=== PATIENT | male | born 1965 | race Caucasian/White ===

== ENCOUNTER → 2022-01-31 07:44 | Outpatient (CLI) | payer OTHER, SELFPAY ==
--- NOTE | ~2022-01-31 | US_ITS ---
US abdomen limited INDICATION: Right upper quadrant pain PROCEDURE: Realtime right upper abdominal ultrasound. COMPARISON: No prior studies for comparison. FINDINGS: Pancreas is not well visualized due to bowel gas. Liver echotexture is normal without foca l mass or intrahepatic biliary dilatation. There is normal directional flow in the portal vein. Gallbladder is distended with stones and sludge. There is gallbladder wall thickening. No pericholecy stic fluid. Common bile duct measures 3 mm. No sonographic Christianson's sign. IMPRESSION: 1: Gallbladder distention with stones and sludge with gallbladder wall thickening. Findings suspiciou s for cholecystitis. Consider correlation with nuclear hepatobiliary scan. Reviewed, dictated and finalized at location A. IMPRESSION: 1: Gallbladder distention with stones and sludge with gallbladder wall thickeni ng. Findings suspicious for cholecystitis. Consider correlation with nuclear he patobiliary scan.
== END ==
PROVIDERS: PCP Nurse Practitioner; Visit Provider Nurse Practitioner
DX: R10.13 Epigastric pain (principal); R10.11 Right upper quadrant pain; K80.20 Calculus of gallbladder without cholecystitis without obstruction; K83.9 Disease of biliary tract, unspecified
CPT/HCPCS: 76705

== ENCOUNTER 2022-03-07 13:14 | Outpatient (CLI) | payer OTHER, SELFPAY ==
--- NOTE | ~2022-03-07 | NM_ITS ---
EXAMINATION: NM hepatobiliary wo pharm DATE: 03/07/2022 16:13 CDT INDICATION: Gallstones. Abdomen pain. COMPARISON: None. TECHNIQUE: 1 mCi Tc-99m mebrofenin (Choletec) was administered intravenously. Scintigraphic images o f the abdomen were obtained for one hour. At the 1 hour time point, the patient drank 8 oz Ensure, an d imaging was continued for 60 minutes. Gallbladder ejection fraction was calculated by the technolog ist. FINDINGS: There is normal clearance of radiotracer from the blood pool. There is homogeneous tracer u ptake by the liver. Activity progresses to the bowel and gallbladder. The gallbladder ejection fract ion is 95%. Note that with this technique, normal GBEF >= 33%. IMPRESSION: 1. Normal hepatobiliary scan. Reviewed, dictated and finalized at location A.
== END 2022-03-07 13:15 | disposition home or self-care (01) ==
PROVIDERS: PCP Internal Medicine; Visit Provider Nurse Practitioner
DX: K80.00 Calculus of gallbladder with acute cholecystitis without obstruction (principal)
CPT/HCPCS: 78226; A9537

== ENCOUNTER 2022-03-31 10:53 | Outpatient (CLI) | payer OTHER, SELFPAY ==
--- NOTE | 2022-03-31 11:02 | ECG_ITS ---
Measurements Intervals [place] Rate: 53 P: 39 MD: 152 QRS: -62 QRSD: 134 T: -9 QT: 422 QTc: 398 Interpretive Statements SINUS BRADYCARDIA RIGHT BUNDLE BRANCH BLOCK [120+ ms QRS DURATION, UPRIGHT V1, 40+ ms S IN I/aVL/V4/V5/V6] LEFT ANTERIOR FASCICULAR BLOCK [QRS AXIS <= -45, QR IN I, RS IN II] MINIMAL VOLTAGE CRITERIA FOR LVH, CONSIDER NORMAL VARIANT [MEETS CRITERIA IN ONE OF: R(aVL), S(V1), R(V5), R(V5/V6)+S(V1)] ABNORMAL ECG NO PREVIOUS ECG AVAILABLE FOR COMPARISON Electronically Signed On 03-31-2022 17:22:02 CDT by Fransico Alfaro M.D.
[2022-03-31 11:37] LABS: Alanine Aminotransferase 14 U/L (6-50); Albumin Level 4.6 g/dL (3.5-5.1); Alkaline Phosphatase 71 U/L (38-126); Amylase 75 U/L (30-110); Aspartate Amino Transferase 17 U/L (17-59); Bilirubin,Total 0.4 mg/dL (0.2-1.3); Lipase 49 U/L (23-300)
== END 2022-03-31 10:54 | disposition home or self-care (01) ==
PROVIDERS: PCP Internal Medicine; Visit Provider Surgery
DX: K80.00 Calculus of gallbladder with acute cholecystitis without obstruction (principal); E78.5 Hyperlipidemia, unspecified; Z01.818 Encounter for other preprocedural examination; I45.10 Unspecified right bundle-branch block; I44.4 Left anterior fascicular block
CPT/HCPCS: 36415; 80076; 82150; 83690; 86850; 86900; 86901; 93005

== ENCOUNTER 2022-04-05 00:41 | Day surgery (SDC) | payer OTHER, SELFPAY ==
[2022-03-27 17:54] VITALS: BMI 25.0
--- NOTE | 2022-03-27 18:10 | PC.NURSE ---
Report to the Outpatient Waiting Room, entrance under the green pavilion located off [facility], at time _1130 on date 04/05/22. OR Time: 1330_. - You and your visitor will be asked to self-screen and do not enter if you have any COVID symptoms. - Only one visitor and NO children visitors are allowed at this time. - The patient visitor is requested to leave or wait in car when not with patient due to restrictions. - A mask is required within the hospital. Patients may have clear liquids (water, carbonated beverages, clear teas, apple juice) until 3 hours prior to surgery with a maximum of 20 ounces. - No food from midnight until time of surgery - Infants may have breast milk until 4 hours before surgery, formula 6 hours prior to surgery. - Children will be allowed to drink immediately following surgery. If applicable, please bring a bottle or sippy cup to assist with drinking. Juice, water, soda, and popsicles are readily available. For infants on formula, please bring formula the day of surgery. Pacifiers are allowed. Take the following medications with a SIP of water the morning of surgery: _n/a Medications to discontinue per physician _n/a__ Date to take last dose Please no make-up, nail malaysian, hairspray, perfume, deodorant, or body powder the day of surgery. No jewelry (including any body piercings) or valuables the day of surgery, leave them at home. Please take a shower or bath the night before, or the morning of, surgery with an antibacterial soap. Wear comfortable, loose fitting clothing. Children are encouraged to wear pajamas. - Jewelry must be removed prior to entering the operating room. Rings and piercings that are not removed may be cut off. - The hospital will not accept responsibility for valuables. - Please leave all valuables, including medications, at home the day of surgery. If you are going home after surgery, a licensed driver examiner must drive you home. - NO public transportation without another adult. - We recommend that an adult stay with you for 24 hours following discharge. - We also recommend that you do not drive, make important decision, drink alcoholic beverages, or take any drugs that were not prescribed by your health care provider for at least 24 hours after your discharge time. For Pediatric surgeries, we recommend two adults accompany the child home (only one inside the building at this time). Follow any additional instructions given to you from your surgeon. If you or anyone in your household have experienced Covid symptoms in the past week, please notify your surgeon or the nurse liaison at the phone number below for possible testing. Telephone instructions given to Abdiel Curryand asked if any additional questions and then verbalized understanding. Patient advised to call surgeon office or pre surgery nurse liaison [phone] if any additional questions.
--- NOTE | 2022-04-04 13:19 | P.PNAN_ITS ---
Anes - Initial Pre Proc Eval Procedure: Operation Date: 04/05/22 09:00 Proposed Procedures p Laparoscopic Cholecystectomy - Julianna Ritter MD Date/Time: 04/04/22 13:19 Surgeon: Julianna Ritter MD Pre Op Diagnosis: chronic cholecystitis with calculus Patient Data Age: 57 Gender: M Height: 1.91 m Weight: 91 kg Allergies Allergy/AdvReac Type Severity Reaction Status Date / Time No Known Allergies Allergy Verified 04/05/22 07:32 Home Medications Medication Instructions Recorded Confirmed Type Saccharomyces boulardii 250 mg 5,000 mmu cells PO DAILY 01/24/22 04/05/22 History capsule (Daily Probiotic (S. boulardii)) atorvastatin 80 mg tablet 80 mg PO DAILY 01/24/22 04/05/22 History diclofenac sodium 1 % topical gel 2 g topical QID 01/24/22 04/05/22 History (Voltaren Arthritis Pain) duloxetine 30 mg capsule,delayed 30 mg PO DAILY 01/24/22 04/05/22 History release Patient hx anesthesia problems: none Family hx anesthesia problems: none Results Review: All pre-operative results and documents have been reviewed as part of the pre- operative evaluation. [facility] Past Medical History Medical History Anxiety Arthritis Depression Hyperlipidemia Surgical History Surgical History H/O arthroscopy of left knee 1991 Family History Family History Father Cerebrovascular accident Mother No problems noted. 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 [employer] Spiritual care concerns: No Agree to blood products: Yes Anes - Eval Final PreProcedure Day of Procedure 04/04/22 13:19 Patient weight: overweight Heart: regular rate and rhythm Lungs: clear to auscultation and normal air movement Airway: Mallampati scale class II Neurological: alert and oriented Last oral intake: >/= 8 hours ASA classification: II Emergent: no Anesthetic plan: proceed Anesthesia type and monitoring: general ETT Results Review: All pre-operative results and documents have been reviewed as part of the pre- operative evaluation. Informed Consent: The patient's anesthetic plan and its attendant risks and benefits were discussed with the patient/family/POA. Questions were solicited and answers provided to the satisfaction of the patient/family/POA.
[2022-04-05] VITALS (8 sets, daily range): BP systolic 126–159; BP diastolic 63–90; PULSE 52–82; RESP 12–16; TEMP 36.2; O2SAT 99–100
[2022-04-05] MEDS: ACETAMINOPHEN 500 MG TABLET 1000 MG PO (07:31)
[2022-04-05] MEDS: KETOROLAC 15 MG/ML VIAL (*BKC) IV PUSH (07:49)
[2022-04-05] MEDS: LACTATED RINGERS 1,000 ML 30 ML IV CONT ×2 (07:49→10:12)
--- NOTE | 2022-04-05 08:57 | WPDHPUPDATE1 ---
History and Physical Update Update Date/Time: 04/05/22 08:57 History and Physical has been reviewed, including an updated exam of the patient. There are NO changes in the patient's condition. Risks, benefits, and alternatives have been discussed and questions answered. Patient agrees to proceed with procedure.
[2022-04-05] MEDS: ceFAZolin 2 GM/D5W 50 ML 2 GM/50 ML BAG IVPB (08:59)
--- NOTE | 2022-04-05 10:04 | W.PM.PROC2 ---
Procedure Note - Detailed Date of Procedure 04/05/22 Pre-op Diagnosis chronic cholecystitis with calculus Post-op Diagnosis Same Procedure Performed Laparoscopic cholecystectomy Surgeon Julianna Ritter MD Anesthesia General Indications 57-year-old male presented to the office complaining of postprandial right upper quadrant abdominal pain associated with nausea and vomiting. Workup including imaging significant for cholecystitis, cholelithiasis. Findings Cholecystitis with cholelithiasis Description of Procedure The patient was taken to the operating room placed in the supine position. After adequate induction of general anesthesia, the patient was prepped and draped in normal sterile fashion. A time-out was then performed to verify the patient's identity as well as the procedure being performed. I then made a 5 mm incision in the infraumbilical region. Through this, a Veress needle was placed into the peritoneal cavity and CO2 gas was then insufflated. After adequate pneumoperitoneum was achieved, the Veress needle was removed and a 5 mm optiview trocar was placed through this incision under direct visualization. I then placed the laparoscope through this trocar site and under direct visualization placed a further 12 mm subxiphoid port as well as 2 additional 5 mm ports in the right upper abdomen. The gallbladder was then identified and was noted to be inflamed and distended. There was some omental adhesions to the gallbladder and this was taken down with the bovie cautery. I was able to place a grasper at the dome of the gallbladder and this was retracted anterior and cephalad up over the liver. A 2nd retractor was then placed at the infundibulum and retracted laterally, this allowed visualization of the triangle of Calot. I then was able to visualize the cystic duct in its entirety from its proximal insertion into the gallbladder, to its distal junction with the common hepatic/common bile duct junction. At this point, I carefully skeletonized the proximal cystic duct with the [place] dissector. I then clipped and transected the proximal cystic duct. Next I visualized the cystic artery. Again the artery was skeletonized, clipped, and transected. I then used the Bovie cautery to take down the peritoneal attachments of the gallbladder off the liver bed. This was somewhat difficult given the amount of inflammation in the posterior space. Once the gallbladder specimen was completely detached, an endo-pouch was placed through the 12 mm port site. I then placed the gallbladder specimen into the Endo pouch and removed the endo-pouch from the 12 mm port site. The specimen will now be sent to pathology for further review. I then copiously irrigated the right upper quadrant. Some mild oozing was noted in the liver bed and this was controlled with the bovie cautery. Hemostasis was noted in the liver bed, the clips were noted to be in good position on both the cystic duct stump and the cystic artery stump. No other pathology was noted in the right upper quadrant. I then moved the laparoscope to the subxiphoid port. No iatrogenic injury or other pathology was noted in the lower abdomen. I then closed the 12 mm trocar site under direct visualization using the Yohan cone and 0 Vicryl suture. At this point, the abdomen was desufflated and all ports removed. All port sites were then closed with 4.O Monocryl subcuticular sutures. Dermabond was placed on each incision. The patient tolerated the procedure well, was extubated in the operating room postoperative and will be transferred to the recovery room in stable condition Estimated Blood Loss 10 Drains No Packing No Pathology Yes Complications No immediate complications Condition Stable Disposition PACU [facility] Billing Surgery - Charge Forward: Surgery Billing
== END 2022-04-05 11:55 | disposition home or self-care (01) ==
PROVIDERS: PCP Internal Medicine; Visit Provider Surgery
PROC: 0FT44ZZ Resection of Gallbladder, Percutaneous Endoscopic Approach (ICD-10-PCS; CPT 47562; principal; 2022-04-05 09:00)
DX: K80.10 Calculus of gallbladder with chronic cholecystitis without obstruction (principal); D13.5 Benign neoplasm of extrahepatic bile ducts; E78.5 Hyperlipidemia, unspecified; F41.9 Anxiety disorder, unspecified; F32.A Depression, unspecified; F17.210 Nicotine dependence, cigarettes, uncomplicated
CPT/HCPCS: 47562; 36415; 80076; 82150; 83690; 86850; 86900; 86901; 88304; 93005; A9270; J0690; J1100; J1170; J1885; J2250; J2370; J2405; J2704; J2710; J3010; J7030; J7120

== ENCOUNTER → 2023-06-04 11:03 | Outpatient (CLI) | payer OTHER, SELFPAY ==
--- NOTE | ~2023-06-04 | XR_ITS ---
XR knee LT 3V DATE: 06/04/2023 11:15 INDICATION: Left knee pain. No recent injury. TECHNIQUE: [place], AP and lateral views COMPARISON: None FINDINGS: There is periarticular spurring at all 3 compartments, particularly severe at the patellofe moral compartment. Mild loss of medial compartment joint space height. No fracture or dislocation or joint effusion, radiopaque intra-articular loose body or chondrocalcino sis is detected. No periosteal reaction or bone destruction. IMPRESSION: Tricompartment osteoarthritis, particularly severe at the patellofemoral compartment Reviewed, dictated and finalized at location L. IMPRESSION: Tricompartment osteoarthritis, particularly severe at the patellofe moral compartment
== END ==
PROVIDERS: PCP Internal Medicine; Visit Provider Nurse Practitioner
DX: M25.562 Pain in left knee (principal); M17.12 Unilateral primary osteoarthritis, left knee
CPT/HCPCS: 73562

== ENCOUNTER 2023-06-07 07:54 | Outpatient (CLI) | payer OTHER, SELFPAY ==
[2023-06-07 08:40] LABS: Basophils Percent Auto 0.3 % (0.2-1.2); Eosinophils Absolute Auto 0.1 K/mm3 (0-0.3); Eosinophils Percent Auto 0.9 % (0-4.4); Hemoglobin 13.4 g/dL (14.0-18.0); Immature Granulocyte Absolute 0.02 K/mm3 (0.00-0.031); Immature Granulocyte Percent A 0.3 % (0-0.5); Lymphocytes Absolute Auto 2.55 K/mm3 (0.9-3.2); Lymphocytes Percent Auto 39.8 % (18.3-44.2); Mean Corpuscular HGB Conc 32.7 g/dl (32-36); Mean Corpuscular Volume 94.9 fl (80-100); Monocytes Absolute Auto 0.5 K/mm3 (0.1-0.6); Neutrophils Absolute Auto 3.3 K/mm3 (1.3-6.7); Neutrophils Percent Auto 51.7 % (45.5-73.1); Platelet Count Result 254 k/mm3 (150-375); Red Blood Count 4.32 M/mm3 (4.6-6.20); Red Cell Distribution Width 13.1 % (11.5-14.5); White Blood Count 6.4 K/mm3 (4.5-10.0)
[2023-06-07 08:55] LABS: Alanine Aminotransferase 23 U/L (6-50); Albumin Level 4.3 g/dL (3.5-5.1); Alkaline Phosphatase 74 U/L (38-126); Anion Gap 7 mmol/L (8-16); Aspartate Amino Transferase 21 U/L (17-59); Bilirubin,Total 0.6 mg/dL (0.2-1.3); Blood Urea Nitrogen 15 mg/dL (9-20); Calcium 9.5 mg/dL (8.4-10.2); Carbon Dioxide 27 mmol/L (22-30); Chloride 104 mmol/L (98-107); Cholesterol 204 mg/dL (0-200); Estimated Glomerular Filt Rate > 60; Glucose 111 mg/dL (65-110); HDL Direct 43 mg/dL; Potassium 4.2 mmol/L (3.4-5.0); Sodium 138 mmol/L (137-145); Triglycerides 141 mg/dL (<150)
[2023-06-07 09:06] LABS: LDL Cholesterol Direct 124 mg/dL
[2023-06-07 11:23] LABS: Prostate Specific Antigen 1.8 ng/mL (< OR = 4.0)
[2023-06-07 14:06] LABS: Hemoglobin A1C 5.6 % (<5.7)
== END 2023-06-07 07:55 | disposition home or self-care (01) ==
LOC: ANHLAB 07:55
PROVIDERS: PCP Internal Medicine; Visit Provider Nurse Practitioner
DX: Z12.5 Encounter for screening for malignant neoplasm of prostate (principal); E78.5 Hyperlipidemia, unspecified; R73.9 Hyperglycemia, unspecified; Z13.29 Encounter for screening for other suspected endocrine disorder
CPT/HCPCS: 36415; 80053; 80061; 83036; 84153; 85025; G0103

== ENCOUNTER 2023-12-24 09:34 | Outpatient (CLI) | payer OTHER, SELFPAY ==
[2023-12-24 09:50] LABS: Basophils Percent Auto 0.2 % (0.2-1.2); Eosinophils Absolute Auto 0.1 K/mm3 (0-0.3); Eosinophils Percent Auto 2.2 % (0-4.4); Hematocrit 42.7 % (42.0-52.0); Immature Granulocyte Absolute 0.02 K/mm3 (0.00-0.031); Immature Granulocyte Percent A 0.3 % (0-0.5); Immature Reticulocyte Fraction 11.8 % (3.0-15.9); Lymphocytes Absolute Auto 2.12 K/mm3 (0.9-3.2); Lymphocytes Percent Auto 36.3 % (18.3-44.2); Mean Corpuscular HGB Conc 32.8 g/dl (32-36); Mean Corpuscular Hemoglobin 31.5 pg (26-34); Mean Platelet Volume 10.8 fl (7.4-10.4); Monocytes Absolute Auto 0.4 K/mm3 (0.1-0.6); Monocytes Percent Auto 6.7 % (2.6-8.5); Neutrophils Absolute Auto 3.2 K/mm3 (1.3-6.7); Neutrophils Percent Auto 54.3 % (45.5-73.1); Platelet Count Result 236 k/mm3 (150-375); Red Blood Count 4.45 M/mm3 (4.6-6.20); Red Cell Distribution Width 12.9 % (11.5-14.5); Reticulocyte Hemoglobin Conten 33.7 pg (28.2-36.6); Reticulocyte Percent 1.43 % (0.7-4.3); Reticulocytes Absolute 0.06 10^6/uL (0.02-0.10); White Blood Count 5.8 K/mm3 (4.5-10.0)
[2023-12-24 10:06] LABS: Iron 69 ug/dL (49-181)
[2023-12-24 10:16] LABS: Percent Iron Saturation 21 % (20-50)
[2023-12-24 10:42] LABS: Erythrocyte Sedimentation Rate 19 mm/hr (0-20)
[2023-12-24 11:13] LABS: Folic Acid 13.2 ng/mL (2.76->20)
[2023-12-31 14:39] LABS: Apolipoprotein B 93 mg/dL
== END 2023-12-24 09:35 | disposition home or self-care (01) ==
LOC: ANHLAB 09:36
PROVIDERS: PCP Internal Medicine; Visit Provider Nurse Practitioner
DX: D64.9 Anemia, unspecified (principal); E78.5 Hyperlipidemia, unspecified
CPT/HCPCS: 36415; 82172; 82607; 82728; 82746; 83540; 83550; 85025; 85046; 85652

== ENCOUNTER 2025-06-11 08:57 | Outpatient (CLI) | payer BC, SELFPAY ==
--- NOTE | 2025-06-11 09:30 | ECG_ITS ---
Test Date: 2025-06-11 09:45:22 Measurements Intervals [place] Rate: 68 P: 42 CT: 163 QRS: -60 QRSD: 133 T: 0 QT: 420 QTc: 447 Interpretive Statements SINUS RHYTHM RIGHT BUNDLE BRANCH BLOCK LEFT ANTERIOR FASCICULAR BLOCK Electronically Signed On 06-11-2025 10:07:43 DE ICER FINISHER by Remington Ramirez D.O
--- OUTSIDE RECORDS SUMMARY | 2025-06-11 09:32 | XMS_ITS | Clinical Summary ---
Author Organization [facility] [employer] Address [address] [place] [address] Care Team Providers Care Eclectic Doctor Name Role Phone Edgar Fuller DO Primary Care Provider [phone] Source Comments [facility] [employer],non-owned Affiliates and Associated Physician Practices is amultiple site organization consisting of ambulatory clinics and hospital sitesin [place], [place], [place] and [place]. This disclosure is being madepursuant to the Care Everywhere program and may not contain all information available regarding this patient. Last updated 18.[facility] [employer] Allergies No known active allergies Medications * This document contains information received from the source organization and may not represent a complete record from that organization. * Be aware that medications may not be up to date on this document. Alwaysverify current medications with the patient. diclofenac sodium (VOLTAREN) 1 % gel Apply to affected area 4 times daily Active atorvastatin (LIPITOR) 80 MG tabletIndicatio ns:Dyslipidemia TAKE 1 TABLET BY MOUTH AT BEDTIME 90 tablet 3 11/27/2021 Active DULoxetine (Cymbalta) 30 MG capsuleIndicati ons:Recurrent major depressive disorder, in full remission TAKE 1 CAPSULE BY MOUTH EVERY DAY 90 capsule 3 01/28/2023 Active Active Problems Problem Noted Date Diagnosed Date Early satiety 10/04/2021 Assessment & Plan (10/04/2021 4:12 PM PRISON GUARD): Worsening over time. Unable to eat what he could normally eat in the past without having significant abdominal pain and discomfort. Sending for EGD to rule out insidious cause. If normal, will advise to try antacids and/or reduce portion sizes to accommodate. Chronic pain of left knee 11/23/2020 Assessment & Plan (11/23/2020 4:49 PM CDT): Possible osteoarthritis versus long-term sequela of past surgery. Sending for x- ray and refer him to sports medicine. Generalized abdominal pain 11/23/2020 Assessment & Plan (11/23/2020 4:49 PM CDT): Unclear etiology. Possible food intolerance. Could also have a gastric ulcer. Checking H. pylori and labs. If all normal, suggest patient monitor for possible food triggers and take [id number] treatments as needed. Recurrent major depressive disorder 09/17/2018 Assessment & Plan (11/23/2020 4:49 PM CDT): Doing well on Cymbalta. Continue current dose. Assessment & Plan (04/28/2019 4:38 PM CDT): Doing very well at present. No changes to treatment indicated. Return in about 1 year (around 04/28/2020) for f/u depression. Dyslipidemia 09/17/2018 Sensorineural hearing loss (SNHL) of both ears 1 09/16/2016 Tinnitus of left ear 07/16/2017 Anxiety 12/02/2015 Immunizations Immunization Administration Dates Next Due FLU VACCINE TRI IIV3 SPLIT PF IM (FLUVIRIN) 11/2016 INFLUENZA VACCINE 05/19/2021 Influenza Intradermal 04/12/2016 TDAP (7yrs+) 04/12/2016 Zoster Hzv Vacc Recombinant Inj Im 04/28/2019 Social History Tobacco Use Types Packs/Day Years Used Date Smoking Tobacco: Every Day Cigarettes Smokeless Tobacco: Never Alcohol Use Standard Drinks/Week Comments Yes 0 (1 standard drink = 0.6 oz pur e alcohol) socially AUDIT-C Answer Date Recorded Q1: How often do you have a drink containing alc ohol? 2-4 times a month 11/23/2020 Q2: How many drinks containi ng alcohol do you have on a typical day when you are drinking? 3 or 4 11/23/2020 Q3: How often do you have si x or more drinks on one occasion? Less than monthly 11/23/2020 PHQ-2 Answer Date Recorded PHQ2 TOTAL SCORE 0 10/04/2021 Sex and Gender Information Value Date Recorded Sex Assigned at Not on file Legal Sex Male 10:59 AM PRISON GUARD Gender Identity Not on file Sexual Orientation Not on file Last Filed Vital Signs Vital Sign Reading Time Taken Comments Blood Pressure 127/78 12/06/2021 2:15 PM CDT Pulse 71 12/06/2021 2:15 PM CDT Temperature 36.9 C (98.4 F) 12/06/2021 1:56 PM CDT Respiratory Rate 12 12/06/2021 2:15 PM CDT Oxygen Saturation 100% 12/06/2021 2:15 PM CDT Inhaled Oxygen Concentration - - Weight 89.7 kg (197 lb 11.2 oz) 022 12:57 PM CDT Height 190.5 cm (6' 3) 12/06/2021 12:5 7 PM CDT Body Mass Index 24.71 12/06/2021 12:57 PM CDT Plan of Treatment Health Maintenance Due Date Last Done Comments COLON MONITORING 1966 COLONOSCOPY - COLON CA SCREENING 1966 CT COLONOGRAPHY - COLON CA SCREENING 1966 FIT - COLON CA SCREENING 1966 FLEX SIG - COLON CA SCREENING 1966 HIV SCREENING 1981 HEPATITIS C SCREENING 02/24/1984 HEPATITIS B VACCINE (1 of 3 - 19+ 3-dose series) 1985 PNEUMOCOCCAL VACCINE 50+ (1 of 2 - PCV) 1985 ZOSTER VACCINE (2 of 2) 06/23/2019 04/28/2019 COLOGUARD (AGES 45-75) - COL ON CA SCREENING 02/02/2024 02/01/2021, 02/01/2021 Colorectal Cancer Screening 02/02/2024 DEPRESSION SCREENING 08/05/2024 COVID-19 VACCINE (1 - 2023-2 5 season) 2025 INFLUENZA VACCINE (#1) 2025 , 07/08/2017, 04/12/2016 DTAP/TDAP/TD VACCINES (2 - T d or Tdap) 04/12/2026 04/12/2016 HIB VACCINE Aged Out No longer eligi ble based on patient's age to complete this topic HPV VACCINE Aged Out No longer eligi ble based on patient's age to complete this topic MENINGOCOCCAL (Group B) VACCINE SHARED DECISION-MAKING Aged Out No longer eligible based on patient's age to complete this topic MENINGOCOCCAL GROUPS A/C/Y/W VACCINE Aged Out No longer eligible b ased on patient's age to complete this topic Procedures Procedure Name Priority Date/Time Associated Diagnosis Comments COLOGUARD TEST Routine 02/01/2021 10:00 AM CDT Colon cancer screening from Last 3 Months or Most Recently Relevant to Health Maintenance Results * COLOGUARD TEST (02/01/2021 10:00 AM CDT) Cologuard Negative Negative [facility] Comment: NEGATIVE TEST RESULT. A negative Cologuard result indicates a low likelihood that a colorectal cancer (CRC) or advanced adenoma (adenomatous polyps with more advanced pre-malignant features) is present. The chance that a person with a negative Cologuard test has a colorectal cancer is less than 1 in 1500 (negative predictive value >99.9%) or has an advanced adenoma is less than 5.3% (negative predictive value 94.7%). These data are based on a prospective cross-sectional study of 10,000 individuals at average risk for colorectal cancer who were screened with both Cologuard and colonoscopy. (Fifi Amador et al, N Engl J Med 2014;370(14):1316-4620) The normal value (reference range) for this assay is negative. COLOGUARD RE-SCREENING RECOMMENDATION: Periodic colorectal cancer screening is an important part of preventive healthcare for asymptomatic individuals at average risk for colorectal cancer. Following a negative Cologuard result, the [place] Cancer Society and U.S. Multi-Society Task Force screening guidelines recommend a Cologuard re-screening interval of 3 years. References: [place] [employer] Society Guideline for Colorectal Cancer Screening: https://www.cancer.org/cancer/ydwvz-fvdyht-jvotov/dasazrdvp-oaaibfagl-mlzuaki/ acs-recommendations.html.; Torres DYSON, Sudarshan MANNING, Lobo BAUGH, Colorectal Cancer Screening: Recommendations for Physicians and Patients from the U.S. Multi-Society Task Force on Colorectal Cancer Screening , Am J Gastroenterology 2017; 112:3157-6989. TEST DESCRIPTION: Composite algorithmic analysis of stool DNA-biomarkers with hemoglobin immunoassay. Quantitative values of individual biomarkers are not reportable and are not associated with individual biomarker result reference ranges. Cologuard is intended for colorectal cancer screening of adults of either sex, 45 years or older, who are at average-risk for colorectal cancer (CRC). Cologuard has been approved for use by the U.S. FDA. The performance of Cologuard was established in a cross sectional study of average-risk adults aged 50-84. Cologuard performance in patients ages 45 to 49 years was estimated by sub-group analysis of near-age groups. Colonoscopies performed for a positive result may find as the most clinically significant lesion: colorectal cancer [4.0%], advanced adenoma (including sessile serrated polyps greater than or equal to 1cm diameter) [20%] or non- advanced adenoma [31%]; or no colorectal neoplasia [45%]. These estimates are derived from a prospective cross-sectional screening study of 10,000 individuals at average risk for colorectal cancer who were screened with both Cologuard and colonoscopy. (Fifi Grajeda. et al, N Engl J Med 2014;370(14):3454-9094.) Cologuard may produce a false negative or false positive result (no colorectal cancer or precancerous polyp present at colonoscopy follow up). A negative Cologuard test result does not guarantee the absence of CRC or advanced adenoma (pre-cancer). The current Cologuard screening interval is every 3 years. ([place] Cancer Society and U.S. Multi-Society Task Force). Cologuard performance data in a 10,000 patient pivotal study using colonoscopy as the reference method can be accessed at the following location: www.[employer] Nation/results. Additional description of the Cologuard test process, warnings and precautions can be found at www.[employer].com. Stool specimen (specimen) STOOL SPECIMEN / Unknown 02/01/2021 10:00 AM CDT 02/02/2021 2:57 PM CDT us Fransico Belcher MD LAB - CHEMISTRY ORDERABLES Fi nal Result [email or web address] [address] [place] [address] [email or web address] [address] [place] [address] from Last 3 Months or Most Recently Relevant to Health Maintenance Insurance Member Subscriber Plan / Payer (Ef fective 2018-Present) Name:Nadya Raymond Relation to Subscriber:Self Name:NADYA RAYMOND Payer ID:[id number] (NAIC) Type:HMO Address: [place] [id number] [place] [id number] [facility] Care Teams Eclectic Doctor Relationship Specialty Start Date End Date Edgar Fuller DO PCP - General 04/10/22
--- OUTSIDE RECORDS SUMMARY | 2025-06-11 09:32 | XMS_ITS | Clinical Summary ---
Author Organization [facility] Address [address] [place] [address] Care Team Providers Care Rail Technician Name Role Phone Unknown, Notinfile Primary Care Provider Unavail able Allergies No known active allergies Medications atorvastatin (LIPITOR) 80 mg tablet Take 80 mg by mouth nightly 04/28/[address] (CYMBALTA) 30 mg capsule Take 30 mg by mouth daily 11/06/2019 Active Active Problems Problem Noted Date Diagnosed Date Glaucoma suspect of both eyes 04/17/2020 Assessment & Plan (05/30/2020 9:33 AM CDT): Glaucoma suspect based on c/d and narrow angles FH neg Gonio narrow but no PAS and not occludable OCT wnl HVF wnl IOP wnl Low risk Likely will need CEIOL sooner given angle morphology, but ok to observe for now Prefers to follow with local optom, testing annually, back to me for new concerns or increase in IOP Medical History Medical History Date Comments Depression Arthritis Family History Medical History Relation Name Comments Cataracts Father Cataracts Mother Diabetes Neg Hx Glaucoma Neg Hx Macular degeneration Neg Hx Retinal detachment Neg Hx Thyroid disease Neg Hx Relation Name Status Comments Father Mother Social History Tobacco Use Types Packs/Day Years Used Date Smoking Tobacco: Never Smokeless Tobacco: Never Alcohol Use Standard Drinks/Week Comments Yes 0 (1 standard drink = 0.6 oz pur e alcohol) social Personal Safety Answer Date Recorded Getting School Help Needed Not on file 10/18 Sex and Gender Information Value Date Recorded Sex Assigned at Not on file 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 Gender Identity Not on file Sexual Orientation Not on file Last Filed Vital Signs Vital Sign Reading Time Taken Comments Blood Pressure 133/80 11/19/2018 6:06 PM CDT Pulse 77 11/19/2018 6:06 PM CDT Temperature 37 C (98.6 F) 11/19/2018 6:06 PM CDT Respiratory Rate 16 11/19/2018 6:06 PM CDT Oxygen Saturation 97% 11/19/2018 6:06 PM CDT Inhaled Oxygen Concentration - - Weight 95.3 kg (210 lb) 11/19/2018 6:06 PM CDT Height 190.5 cm (6' 3) 11/19/2018 6:06 PM CDT Body Mass Index 26.25 11/19/2018 6:06 PM CDT Plan of Treatment Not on file Insurance CHOICE PLUS [employer] CHOICE PLUS [place] [id number] , [place] [id number] Care Teams Rail Technician Relationship Specialty Start Date End Date Unknown, Notinfile PCP - General 11/19/18
[2025-06-11 09:47] LABS: Hematocrit 40.8 % (42.0-52.0); Hemoglobin 13.9 g/dL (14.0-18.0); Immature Granulocyte Percent A 0.5 % (0-0.5); Lymphocytes Absolute Auto 2.48 K/mm3 (0.9-3.2); Mean Corpuscular HGB Conc 34.1 g/dl (32-36); Mean Corpuscular Hemoglobin 31.4 pg (26-34); Mean Corpuscular Volume 92.3 fl (80-100); Nucleated Red Blood Cells Absolute Auto 0.000 K/mm3 (0.0-0.012); Nucleated Red Blood Cells Perc 0.0 % (0.0-0.2); Platelet Count Result 282 k/mm3 (150-375); Red Blood Count 4.42 M/mm3 (4.6-6.20); White Blood Count 6.5 K/mm3 (4.5-10.0)
[2025-06-11 09:59] LABS: Add Urine Microscopic? NO; Appearance Urine Clear (Clear); Glucose Urine UA Negative (Negative); Leukocyte Esterase Ur Negative LEU/UL (Negative); Nitrate Urine Negative (Negative); Specific Grav Ur 1.008 (1.001-1.035)
[2025-06-11 10:09] LABS: Anion Gap 7 mmol/L (4-12); Blood Urea Nitrogen 13 mg/dL (9-20); Calcium 9.1 mg/dL (8.4-10.2); Carbon Dioxide 28 mmol/L (22-30); Chloride 102 mmol/L (98-107); Estimated Glomerular Filt Rate > 60; Glucose 107 mg/dL (65-110); Potassium 4.1 mmol/L (3.4-5.0); Sodium 137 mmol/L (137-145)
== END 2025-06-11 08:58 | disposition home or self-care (01) ==
LOC: ANHLAB 08:59
PROVIDERS: PCP Nurse Practitioner; Visit Provider Orthopaedic Surgery
DX: I10 Essential (primary) hypertension (principal); R53.83 Other fatigue; E78.2 Mixed hyperlipidemia; M17.9 Osteoarthritis of knee, unspecified
CPT/HCPCS: 36415; 80048; 81003; 85025; 93005